=== PATIENT | female | born 1950 | race Caucasian/White ===

== ENCOUNTER 2016-10-29 14:16 | Emergency (ER) | payer MEDICARE, MEDICAID ==
[2016-10-29 14:30] VITALS: BMI 27.4
[2016-10-29 14:33] VITALS: RESP 18; TEMP 98.3
--- NOTE | 2016-10-29 15:44 | CT ---
PROCEDURE: CT HEAD WITHOUT CONTRAST. HISTORY: head injury COMPARISON: Comparison made with prior study 02/22/2016. TECHNIQUE: Axial computed tomography images were obtained through the head/brain without intravenous contrast. Radiation dose: Total exam DLP = 722.57 mGy-cm. This CT exam was performed using one or more of the following dose reduction techniques: Automated exposure control, adjustment of the mA and/or kV according to patient size, and/or use of iterative reconstruction technique. FINDINGS: HEMORRHAGE: No acute parenchymal, subarachnoid nor extra-axial hemorrhage. . 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 Mild to moderate diffuse/common low-attenuation changes seen extending out from periventricular into the deep and subcortical white matter are both cerebral hemispheres. There are also of low-attenuation encephalomalacia changes on right frontal lobe surrounding the LEASE PURCHASE TRUCK DRIVER shunt tube. VENTRICLES: The ventricles remain dilated CALVARIUM: There appears to be a 2nd right posterior parietal pamela hole. Hyperostosis frontalis interna. PARANASAL SINUSES: Unremarkable as visualized. No significant inflammatory changes. MASTOID AIR CELLS: Unremarkable as visualized. No inflammatory changes. OTHER FINDINGS: None. 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 Ventricles remain dilated although essentially unchanged from prior study. Chronic periventricular white matter low-attenuation changes seen extending peripherally into the deep and subcortical regions bilaterally. There are also encephalomalacia seen right frontal lobe surrounding the LEASE PURCHASE TRUCK DRIVER shunt tube.
--- NOTE | 2016-10-29 16:12 | ED PDOC ---
Arrival/HPI - General Chief Complaint: Headache Time Seen by Provider: 10/29/16 14:36 - History of Present Illness Narrative History of Present Illness (Text): 10/29/16 16:09 Patient is a 66 y/o F presenting with headache. 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 She reports that she has a R sided/ frontal headache x 3 days. She reports seeing her neurosurgeon Dr. Stout at [facility] 3 days ago who reports that the shunt was fine and that it was likely tension headache, but she became concerned so she presented to ED. Denies fever/chills, nausea/vomiting, chest pain, shortness of breath, vision changes, neck pain, or trauma. She reports that this headache was not acute onset and is not the worst headache of her life. Welder/Installer: Shaun Seth 10/29/16 16:47 Past Medical History - Infectious Disease Hx of Infectious Diseases: None - Tetanus Immunization Tetanus Immunization: Unknown - Cardiac Hx Cardiac Disorders: Yes Hx Hypertension: Yes - Pulmonary Hx Respiratory Disorders: No - Neurological Hx Neurological Disorder: No Hx Vertigo: Yes - HEENT Hx HEENT Disorder: No - Renal Hx Renal Disorder: No - Endocrine/Metabolic Hx Endocrine Disorders: No - Hematological/Oncological Hx Blood Disorders: Yes Hx Hepatitis C: Yes - Integumentary Hx Dermatological Disorder: No - Musculoskeletal/Rheumatological Hx Musculoskeletal Disorders: No - Gastrointestinal Hx Gastrointestinal Disorders: Yes Hx Gastroesophageal Reflux: Yes Hx Liver Failure: Yes (LIVER TRANSPLANT) - Genitourinary/Gynecological Hx Genitourinary Disorders: No - Psychiatric Hx Psychophysiologic Disorder: Yes Hx Anxiety: No Hx Bipolar Disorder: No Hx Depression: Yes Hx Emotional Abuse: No Hx Hallucinations: No Hx Panic Disorder: No Hx Post Traumatic Stress Disorder: No Hx Psychosis: No Hx Physical Abuse: No Hx Schizophrenia: No Hx Sexual Abuse: No Hx Substance Use: No - Surgical History Hx Liver Transplant: Yes (2009) - Anesthesia Hx Anesthesia: Yes Hx Anesthesia Reactions: No Hx Malignant Hyperthermia: No - Suicidal Assessment Feels Threatened In Home Enviroment: No Family/Social History Family/Social History: No Known Family HX Smoking Status: Never Smoked Hx Alcohol Use: No Hx Substance Use: No Hx Substance Use Treatment: No Allergies/Home Meds Allergies/Adverse Reactions: Allergies No Known Allergies Allergy (Verified 10/29/16 14:30) Home Medications: Home Meds Medication Instructions Recorded Confirmed Unobtainable 10/29/16 10/29/16 Review of Systems - Review of Systems Constitutional: absent: Fatigue, Weight Change, Fevers Eyes: absent: Vision Changes, Photophobia, Eye Pain ENT: absent: Hearing Changes Respiratory: absent: SOB, Cough, Sputum, Wheezing Cardiovascular: absent: Chest Pain, Palpitations, Edema, Calf Pain, WRIGHT, Orthopnea, Syncope Gastrointestinal: absent: Abdominal Pain, Constipation, Diarrhea, Nausea, Vomiting Genitourinary Female: absent: Dysuria, Frequency, Hematuria Musculoskeletal: absent: Arthralgias Skin: absent: Rash Neurological: Headache. absent: Dizziness, Focal Weakness, Gait Changes, Speech Changes, Facial Droop, Disequilibrium, Seizure Endocrine: absent: Diaphoresis Hemo/Lymphatic: absent: Adenopathy Physical Exam Vital Signs Temp Pulse Resp BP Pulse Ox 10/29/16 14:32 98.3 F 55 L 18 135/83 97 Temperature: Afebrile Blood Pressure: Normal Pulse: Regular Respiratory Rate: Normal Appearance: Positive for: Well-Appearing, Non-Toxic, Comfortable Pain Distress: None Mental Status: Positive for: Alert and Oriented X 3 - Systems Exam Head: Present: Atraumatic, Normocephalic Pupils: Present: PERRL Extroacular Muscles: Present: EOMI, Other (no temporal tenderness) Conjunctiva: Present: Normal Mouth: Present: Moist Mucous Membranes Neck: Present: Normal Range of Motion, Other (palpable muscle spasm on R side of neck). No: Meningeal Signs, MIDLINE TENDERNESS Respiratory/Chest: Present: Clear to Auscultation, Good Air Exchange. No: Respiratory Distress, Accessory Muscle Use Cardiovascular: Present: Regular Rate and Rhythm, Normal S1, S2. No: Murmurs Abdomen: No: Tenderness, Distention, Rebound, Guarding Upper Extremity: Present: Normal Inspection Lower Extremity: Present: Normal Inspection Neurological: Present: GCS=15, CN II-XII Intact, Speech Normal, Motor Func Grossly Intact, Normal Sensory Function, Gait Normal Skin: Present: Warm, Dry. No: Rashes Psychiatric: Present: Alert, Oriented x 3, Normal Insight, Normal Concentration Medical Decision Making ED Course and Treatment: 10/29/16 16:12 Patient is reporting headache, but presentation and exam seems more consistent with muscle spasm that is radiating into the head causing headache. However, due to history, will evaluate shunt. 10/29/16 16:46 CT head and shunt series show normal placement of shunt. Patient reports headache resolved after valium and toradol. Will dc to follow-up with PMD - RAD Interpretation Radiology Orders: 10/29/16 15:04 HEAD W/O CONTRAST [CT] Stat SHUNTOGRAM [RAD] Stat - Medication Orders Current Medication Orders: Discontinued Medications Diazepam (Valium) 5 mg PO ONCE ONE PRN Reason: Protocol Stop: 10/29/16 15:05 Last Admin: 10/29/16 15:13 Dose: 5 mg Ketorolac Tromethamine (Toradol) 30 mg IM STAT STA Stop: 10/29/16 15:11 Last Admin: 10/29/16 16:30 Dose: 30 mg Disposition/Present on Arrival - Present on Arrival Any Indicators Present on Arrival: No History of DVT/PE: No History of Uncontrolled Diabetes: No Urinary Catheter: No History of Decub. Ulcer: No History Surgical Site Infection Following: None - Disposition Have Diagnosis and Disposition been Completed?: Yes Diagnosis: Headache Disposition: HOME/ ROUTINE Disposition Time: 16:50 Patient Plan: Discharge Patient Problems: Current Active Problems Problem Status Onset Headache Acute Condition: GOOD Discharge Instructions (ExitCare): Acute Headache (ED) Additional Instructions: Follow up with PMD within 2 days. Return to ED if condition worsens. Referrals: Micki Gonsalves MD [Primary Care Provider] - Follow up with primary
--- NOTE | 2016-10-29 16:26 | RAD ---
PROCEDURE: Shunt evaluation HISTORY: shunt with headache COMPARISON: TECHNIQUE: Five views were obtained from the skull to the abdomen to evaluate the ventriculoperitoneal shunt. FINDINGS: The study shows no kinking or breakage of the shunt catheter IMPRESSION: Negative study
[2016-10-29 17:11] VITALS: BP 139/85; PULSE 54; O2SAT 98
== END 2016-10-29 17:11 | disposition home or self-care (01) ==
LOC: ED 14:16
DX: R51 Headache (principal); I10 Essential (primary) hypertension; K21.9 Gastro-esophageal reflux disease without esophagitis; Z94.4 Liver transplant status; Z98.2 Presence of cerebrospinal fluid drainage device
CPT/HCPCS: 70250; 70450; 71010; 74000; 96372; 99285; J1885

== ENCOUNTER 2016-12-28 03:06 | Emergency (ER) | payer MEDICARE, MEDICAID ==
[2016-12-28 03:14] VITALS: BMI 30.2
--- NOTE | 2016-12-28 04:13 | ED PDOC ---
Arrival/HPI - General Chief Complaint: Headache Time Seen by Provider: 12/28/16 03:07 Historian: Patient - History of Present Illness Narrative History of Present Illness (Text): 12/28/16 03:28 Elizabeth Nair is a 66 year old female, whose past medical history includes a ACADEMIC ADVISER shunt and Liver transplant due to Hepatitis C, who presents to the emergency department complaining of constant diffuse headache for 3 days. Patient describes her headache to be sharp and that it radiates from the right side of her neck. Patient notes that she experiences associated nausea. Patient noticed she had a fever since yesterday and also developed coughs, body aches, and chills at that time. Patient denies vomiting, photophobia, numbness, weakness, coordination problems, shortness of breath, dysuria, or any other complaint at this time. Vault Installer, Rafael Barreto #[id number], assisted in obtaining HPI. PMD: Dr. Micki Gonsalves Time/Duration: < week Symptom Onset: Gradual Symptom Course: Unchanged Severity Level: Moderate Activities at Onset: Rest Context: Home Past Medical History - Provider Review Nursing Documentation Reviewed: Yes - Infectious Disease Hx of Infectious Diseases: None - Tetanus Immunization Tetanus Immunization: Unknown - Cardiac Hx Cardiac Disorders: Yes Hx Hypertension: Yes - Pulmonary Hx Respiratory Disorders: No - Neurological Hx Neurological Disorder: Yes Hx Vertigo: Yes - HEENT Hx HEENT Disorder: No - Renal Hx Renal Disorder: No - Endocrine/Metabolic Hx Endocrine Disorders: No - Hematological/Oncological Hx Blood Disorders: Yes Hx Hepatitis C: Yes - Integumentary Hx Dermatological Disorder: No - Musculoskeletal/Rheumatological Hx Musculoskeletal Disorders: No - Gastrointestinal Hx Gastrointestinal Disorders: Yes Hx Gastroesophageal Reflux: Yes Hx Liver Failure: Yes (LIVER TRANSPLANT) - Genitourinary/Gynecological Hx Genitourinary Disorders: No - Psychiatric Hx Psychophysiologic Disorder: Yes Hx Depression: Yes Hx Substance Use: No - Surgical History Hx Liver Transplant: Yes (2009) - Anesthesia Hx Anesthesia: Yes Hx Anesthesia Reactions: No Hx Malignant Hyperthermia: No - Suicidal Assessment Feels Threatened In Home Enviroment: No Family/Social History - Physician Review Nursing Documentation Reviewed: Yes Family/Social History: No Known Family HX Smoking Status: Never Smoked Hx Alcohol Use: No Hx Substance Use: No Hx Substance Use Treatment: No Allergies/Home Meds Allergies/Adverse Reactions: Allergies No Known Allergies Allergy (Verified 12/28/16 03:19) Home Medications: Home Meds Medication Instructions Recorded Confirmed Alendronate Sodium [Binosto] 70 mg PO QWK 12/28/16 12/28/16 Aspirin [Ecotrin] 81 mg PO DAILY 12/28/16 12/28/16 Calcium Carbonate/Vitamin D3 400 mg PO BID 12/28/16 12/28/16 [Calcium 500-Vit D3 400 Tablet] Citalopram Hydrobromide 10 mg PO DAILY 12/28/16 12/28/16 [Citalopram HBr] Dexlansoprazole [Dexilant] 30 mg PO DAILY 12/28/16 12/28/16 Ergocalciferol (Vitamin D2) 50,000 iu PO QWK 12/28/16 12/28/16 [Vitamin D] Gabapentin [Neurontin] 300 mg PO TID 12/28/16 12/28/16 Magnesium Oxide [Mag-Ox] 400 mg PO TID 12/28/16 12/28/16 Metoprolol Succinate [Metoprolol 100 mg PO DAILY 12/28/16 12/28/16 Succinate] Mycophenolate Mofetil 250 mg PO BID 12/28/16 12/28/16 [Mycophenolate Mofetil] Potassium Chloride [K-Dur 20 mEq 20 meq PO DAILY 12/28/16 12/28/16 ER Tab] Tacrolimus [Prograf Cap] 1 mg PO TID 12/28/16 12/28/16 Review of Systems - Physician Review All systems were reviewed & negative as marked: Yes - Review of Systems Constitutional: Fevers, Other (body aches and chills) Respiratory: Cough. absent: SOB Cardiovascular: absent: Chest Pain Gastrointestinal: absent: Abdominal Pain Neurological: Headache Physical Exam - Physical Exam Narrative Physical Exam (Text): Constitutional: No acute distress. Head: Normocephalic. Atraumatic. Eyes: PERRL. ENT: Moist mucous membranes. No erythema. No exudate. Neck: Supple. Negative Kernig and Brudzinski exam. Cardiovascular: Regular rate. Chest: No tenderness. Respiratory: Clear to auscultation bilaterally. GI: Soft. Nontender. Nondistended. Back: No CVA tenderness. Musculoskeletal: No tenderness or swelling of extremities. Skin: No rash. Neurologic: Alert, no focal deficit. Vital Signs Reviewed: Yes Vital Signs Temp Pulse Resp BP Pulse Ox 12/28/16 05:23 98.8 F 73 16 130/72 95 12/28/16 04:12 102.2 F H 12/28/16 03:19 102.2 F H 76 17 150/97 H 96 Temperature: Febrile Blood Pressure: Hypertensive Pulse: Regular Respiratory Rate: Normal Appearance: Positive for: Well-Appearing, Non-Toxic, Comfortable Pain Distress: None Mental Status: Positive for: Alert and Oriented X 3 Medical Decision Making ED Course and Treatment: 12/28/16 03:28 Impression: 66 year old female complaining of constant diffuse headache for 3 days. Differential Diagnosis included but are not limited to: Viral syndrome vs. tension headache vs. muscle spasm vs. ACADEMIC ADVISER shunt malfunction Plan: -- Chest X-ray -- ACADEMIC ADVISER shunt x-ray -- Head CT w/o contrast -- Urinalysis -- Labs -- Tylenol, Toradol, and Zofran -- Reassess and disposition Prior Visits: Notes and results from previous visits were reviewed. Patient last seen in the ED on 10/29/16 for headache that day. Patient was discharged home. Progress Notes: Symptoms much improved, labs unremarkable. FINDINGS: Lungs: No consolidation. Pleural space: No pleural effusion. No pneumothorax. Heart: Mild cardiomegaly. Mediastinum: Unremarkable. Bones/joints: No acute fracture. Tubes, lines and devices: Shunt overlying RIGHT hemithorax. No discontinuity. IMPRESSION: 1. No acute findings. 2. Non-acute findings are described above FINDINGS: Brain: Mild atrophy. No intracranial hemorrhage. No mass. Few scattered foci of decreased attenuation within periventricular/subcortical white matter. No definite edema. Ventricles: RIGHT ventricular shunt with tip projected over medial RIGHT frontal horn. Mildly dilated ventricles out of proportion to sulci, stable. Bones/joints: No acute fracture. Soft tissues: Unremarkable. Sinuses: Scattered minimal mucosal thickening. Mastoid air cells: No mastoid effusion. Orbits: Unremarkable as visualized. IMPRESSION: 1. No significant interval change. 2. Nonspecific white matter changes. 3. Incidental/non-acute findings are described above - Lab Interpretations Lab Results: 12/28/16 04:00 12/28/16 04:00 Lab Results 12/28/16 04:46: Urine Color Yellow, Urine Appearance Sl cloudy, Urine pH 6.0, Ur Specific [place] 1.025, Urine Protein Trace H, Urine Glucose (UA) Negative, Urine Ketones Negative, Urine Blood Small H, Urine Nitrate Negative, Urine Bilirubin Negative, Urine Urobilinogen 0.2, Ur Leukocyte Esterase Trace H, Urine RBC 0 - 2, Urine WBC 0 - 2, Ur Epithelial Cells 0 - 2 12/28/16 04:00: Sodium 140, Potassium 4.2, Chloride 103, Carbon Dioxide 26, Anion Gap 15, BUN 17, Creatinine 1.0, Est GFR ( Amer) > 60, Est GFR (Non- Af Amer) 56, Random Glucose 118 H, Calcium 9.1, Total Bilirubin 1.8 H, AST 27, ALT 21, Alkaline Phosphatase 101, Total Protein 8.4 H, Albumin 4.5, Globulin 3.9 , Albumin/Globulin Ratio 1.2 12/28/16 04:00: WBC 5.6 D, RBC 5.49, Hgb 15.6, Hct 45.9, MCV 83.6, MCH 28.4, MCHC 34.0, RDW 13.3, Plt Count 184, MPV 10.0, Gran % 64.0, Lymph % (Auto) 24.6, [place] % (Auto) 9.4 H, Eos % (Auto) 1.8, Baso % (Auto) 0.2, Gran # 3.60, Lymph # 1.4, [place] # 0.5, Eos # 0.1, Baso # 0.01 I have reviewed the lab results: Yes - RAD Interpretation Radiology Orders: 12/28/16 03:51 CHEST PORTABLE [RAD] Stat 12/28/16 03:53 HEAD W/O CONTRAST [CT] Stat SHUNTOGRAM [RAD] Stat - Medication Orders Current Medication Orders: Discontinued Medications Acetaminophen (Tylenol 325mg Tab) 650 mg PO STAT STA Stop: 12/28/16 04:04 Last Admin: 12/28/16 04:12 Dose: 650 mg Ketorolac Tromethamine (Toradol) 30 mg IVP STAT STA Stop: 12/28/16 03:53 Last Admin: 12/28/16 04:12 Dose: 30 mg Ondansetron HCl (Zofran Inj) 8 mg IVP STAT STA Stop: 12/28/16 03:53 Last Admin: 12/28/16 04:12 Dose: 8 mg - Scribe Statement The provider has reviewed the documentation as recorded by the Edgard Galloway Provider Scribe Attestation: All medical record entries made by the Gustavoibtarik were at my direction and personally dictated by me. I have reviewed the chart and agree that the record accurately reflects my personal performance of the history, physical exam, medical decision making, and the department course for this patient. I have also personally directed, reviewed, and agree with the discharge instructions and disposition. Disposition/Present on Arrival - Present on Arrival Any Indicators Present on Arrival: No History of DVT/PE: No History of Uncontrolled Diabetes: No Urinary Catheter: No History of Decub. Ulcer: No History Surgical Site Infection Following: None - Disposition Have Diagnosis and Disposition been Completed?: Yes Diagnosis: Headache Disposition: HOME/ ROUTINE Disposition Time: 06:02 Patient Plan: Discharge Patient Problems: Current Active Problems Problem Status Onset Headache Acute Condition: STABLE Discharge Instructions (ExitCare): Acute Headache (ED) Prescriptions: Ibuprofen [Motrin] 600 mg PO Q6 #25 tab Ondansetron ODT [Zofran ODT] 4 mg PO Q8 #12 odt Referrals: Micki Gonsalves MD [Primary Care Provider] - Follow up with primary
[2016-12-28 04:23] LABS: BASO # 0.01 K/mm3 (0.0-2.0); BASO % 0.2 % (0.0-3.0); EOS # 0.1 (0.0-0.7); EOS % 1.8 % (1.5-5.0); HEMOGLOBIN 15.6 gm/dL (12.0-16.0); LYMPH # 1.4 (1.2-3.4); LYMPH % 24.6 % (22.0-35.0); MEAN CELL VOLUME 83.6 fL (80.0-105.0); MEAN CORPUSCULAR HEMOGLOBIN 28.4 pg (25.0-35.0); MONO # 0.5 (0.1-0.6); MONO % 9.4 % (1.0-6.0); PLATELET COUNT 184 10^3/uL (120.0-450.0); RBC 5.49 10^6/uL (3.5-6.1); RED CELL DISTRIBUTION WIDTH 13.3 % (11.5-14.5); WHITE BLOOD COUNT 5.6 10^3/ul (4.5-11.0)
[2016-12-28 04:37] LABS: BLOOD UREA NITROGEN 17 mg/dL (7-21); GFR AFRICAN-AMERICAN > 60; GFR NON-AFRICAN AMERICAN 56
[2016-12-28 04:38] LABS: ALB/GLOB RATIO 1.2 (1.1-1.8); ALBUMIN 4.5 g/dL (3.0-4.8); ALT/SGPT 21 U/L (7-56); AST/SGOT 27 U/L (15-39); CALCIUM 9.1 mg/dL (8.4-10.5)
--- NOTE | 2016-12-28 05:04 | CT ---
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 This CT exam was performed using one or more of the following dose reduction techniques: automated exposure control, adjustment of the mA and/or kV according to patient size, and/or use of iterative reconstruction technique. COMPARISON: CT - HEAD W/O CONTRAST 10/29/2016 3:13:41 PM FINDINGS: Brain: Mild atrophy. No intracranial hemorrhage. No mass. Few scattered foci of decreased attenuation within periventricular/subcortical white matter. No definite edema. Ventricles: RIGHT ventricular shunt with tip projected over medial RIGHT frontal horn. Mildly dilated ventricles out of proportion to sulci, stable. Bones/joints: No acute fracture. Soft tissues: Unremarkable. Sinuses: Scattered minimal mucosal thickening. Mastoid air cells: No mastoid effusion. Orbits: Unremarkable as visualized. IMPRESSION: 1. No significant interval change. 2. Nonspecific white matter changes. 3. Incidental/non-acute findings are described above.
[2016-12-28 05:05] LABS: URINE BILIRUBIN NEGATIVE (NEGATIVE); URINE BLOOD SMALL (NEGATIVE); URINE GLUCOSE (UA) NEGATIVE (NEGATIVE); URINE LEUKOCYTE ESTERASE TRACE Leu/uL (NEGATIVE); URINE NITRATE NEGATIVE (NEGATIVE); URINE PROTEIN TRACE mg/dL (<30 mg/dL); URINE UROBILINOGEN 0.2 E.U./dL (<1 E.U./dL)
[2016-12-28 05:14] LABS: URINE APPEARANCE SL CLOUDY (CLEAR); URINE COLOR YELLOW (YELLOW)
[2016-12-28 05:18] LABS: URINE EPITHELIAL CELLS 0 - 2 /hpf (0-5); URINE RBC 0 - 2 /hpf (0-2); URINE WBC 0 - 2 /hpf (0-6)
[2016-12-28 05:23] VITALS: BP 130/72; PULSE 73; RESP 16; TEMP 98.8; O2SAT 95
--- NOTE | 2016-12-28 05:28 | RAD ---
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 COMPARISON: No relevant prior studies available. FINDINGS: Bones/joints: No acute fracture. Sinuses: No air-fluid levels. Soft tissues: Unremarkable. Tubes, lines and devices: RIGHT ventricular shunt. No discontinuity. IMPRESSION: 1.No acute findings. 2.Non-acute findings are described above. 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 COMPARISON: No relevant prior studies available. FINDINGS: Bones/joints: Unremarkable. Soft tissues: Unremarkable. Tubes, lines and devices: Shunt overlying RIGHT neck. No discontinuity. IMPRESSION: 1.No acute findings. 2.Non-acute findings are described above. 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 COMPARISON: No relevant prior studies available. FINDINGS: Lungs: No consolidation. Pleural space: No pleural effusion. No pneumothorax. Heart: Mild cardiomegaly. Mediastinum: Unremarkable. Bones/joints: No acute fracture. Tubes, lines and devices: Shunt overlying RIGHT hemithorax. No discontinuity. IMPRESSION: 1.No acute findings. 2.Non-acute findings are described above. 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 COMPARISON: No relevant prior studies available. FINDINGS: Gastrointestinal tract: Unremarkable. No dilation. Bones/joints: Degenerative changes of spine. Tubes, lines and devices: Shunt overlying RIGHT abdomen, tip projected over RIGHT hemipelvis. No discontinuity.
--- NOTE | 2016-12-28 07:31 | RAD ---
HISTORY: r/o PNA COMPARISON: 10/21/2015. FINDINGS: A catheter overlies the right medial thorax. LUNGS: The lungs are well inflated and clear. PLEURA: No significant pleural effusion identified, no pneumothorax apparent. CARDIOVASCULAR: Normal. OSSEOUS STRUCTURES: No significant abnormalities. VISUALIZED UPPER ABDOMEN: Normal. OTHER FINDINGS: None. IMPRESSION: No active pulmonary disease.
== END 2016-12-28 06:18 | disposition home or self-care (01) ==
LOC: ED 03:06
DX: R51 Headache (principal); I10 Essential (primary) hypertension; B19.20 Unspecified viral hepatitis C without hepatic coma; Z94.4 Liver transplant status
CPT/HCPCS: 70250; 70450; 71010; 74000; 80053; 81001; 85025; 87040; 87086; 96374; 96375; 99285; J1885; J2405